=== PATIENT | female | born 1980 | race Caucasian/White ===

== ENCOUNTER 2017-04-22 19:58 | Inpatient (IN) | payer MEDICAID ==
[~2017-04-22] VITALS: Ht 157.5 cm; Wt 62.1 kg
[2017-04-22] MEDS ORDERED: LACTATED RINGER'S 1,000 ML IV SCH (20:32)
[2017-04-22] MEDS ORDERED: MAGNESIUM SULFATE 4 GM/100 ML 100 ML IV ONE (21:00)
[2017-04-22] MEDS ORDERED: TERBUTALINE 1 MG/ML INJ SC ONE (21:00)
[2017-04-22] MEDS ORDERED: ACETAMINOPHEN 325 MG TAB PO PRN (21:00)
[2017-04-22] MEDS ORDERED: BETAMET NA PHOS/AC(6 MG/ML) 5ML INJ IM SCH (21:00)
[2017-04-22] MEDS: LACTATED RINGER'S 1,000 ML IV SCH (21:28)
[2017-04-22 21:53] LABS: ADD SCAN DIFF NO
[2017-04-22] MEDS: MAGNESIUM SULFATE 20 GM/500 ML 500 ML IV SCH (21:55)
[2017-04-22 21:56] LABS: BASOPHILS % 0.3 % (0.0-2.0); EOSINOPHILS # 0.1 10^3/ul (0.0-0.5); EOSINOPHILS % 0.7 % (0.0-7.0); HEMATOCRIT 32.6 % (37.0-47.0); LYMPHOCYTES # 1.9 10^3/ul (0.8-2.9); LYMPHOCYTES % 24.4 % (15.0-51.0); MEAN CORPUSCULAR HEMOGLOBIN 27.2 pg (29.0-33.0); MEAN CORPUSCULAR HGB CONC 33.7 g/dl (32.0-37.0); MEAN CORPUSCULAR VOLUME 80.7 fl (82.0-101.0); MEAN PLATELET VOLUME 11.7 fl (7.4-10.4); MONOCYTE # 0.6 10^3/ul (0.3-0.9); MONOCYTES % 8.1 % (0.0-11.0); NEUTROPHILS % 66.2 % (39.0-77.0); PLATELET COUNT 188 10^3/UL (140-415); RED BLOOD COUNT 4.04 10^6/ul (4.20-5.40); RED CELL DISTRIBUTION WIDTH 14.1 % (11.5-14.5); WHITE BLOOD COUNT 7.6 10^3/ul (4.8-10.8)
[2017-04-22 21:57] VITALS: Ht 157.5 cm; Wt 62.1 kg
[2017-04-22 22:00] LABS: ADD UMIC NO; UR ASCORBIC ACID NEGATIVE (NEGATIVE); UR BILIRUBIN (Dip) NEGATIVE (NEGATIVE); UR BLOOD (Dip) NEGATIVE (NEGATIVE); UR CLARITY CLEAR (CLEAR); UR COLOR STRAW (YELLOW); UR GLUCOSE (Dip) NEGATIVE (NEGATIVE); UR KETONES (Dip) NEGATIVE (NEGATIVE); UR LEUKOCYTE ESTERASE (Dip) NEGATIVE Leu/ul (NEGATIVE); UR NITRITE (Dip) NEGATIVE (NEGATIVE); UR SPECIFIC GRAVITY (Dip) 1.004 (1.003-1.030); UR TOTAL PROTEIN (Dip) NEGATIVE (NEGATIVE); UR UROBILINOGEN (Dip) NEGATIVE (NEGATIVE)
--- NOTE | 2017-04-23 00:06 | RADRPT ---
PROCEDURE: ULTRASOUND OBSTETRICAL CLINICAL INDICATION: 36-year-old female with contractions for viability. TECHNIQUE: Multiple sonographic images of the pelvis were obtained. The images were reviewed on a PACS workstation. COMPARISON: No prior studies are available for comparison. FINDINGS: The cervix is not well visualized. There is a single viable intrauterine gestation. Cardiac activit y is present with 159 beats per minute. There is a breech presentation. Measurements were made in or gutierrez to determine age. The results are as follows: BPD = 8.37 cm, HC = 30.49 cm, AC = 29.79 cm, FL = 6.51 cm. This yields and estimated gestational ag e of approximately 33 weeks 5 days. The estimated date of delivery is June 05, 2017. The EFW = 22 60 +/- 339 g (5 lb 0 oz). The GP is 39%. The placenta is anterior. There is no evidence for an abruption or placenta previa. IMPRESSION: 1. Single viable intrauterine gestation of approximately 33 weeks 5 days with breech presentation. The estimated date of delivery is June 05, 2017. 2. The estimated weight is 2260 +/- 339 g (5 lb 0 oz). The GP is 39%. .Brennon Neil MD, Date Time Electronically viewed and signed by .Brennon Neil MD, MD on 04/23/2017 00:05 .Ryne/
[2017-04-23] MEDS: ONDANSETRON 4 MG INJ IV PRN ×2 (02:59→12:44)
[2017-04-23] MEDS ORDERED: AL HYDROX/MG HYDROX/SIMETH 30 ML CUP PO PRN (03:00)
[2017-04-23] MEDS: LACTATED RINGER'S 1,000 ML IV SCH ×2 (03:01→16:14)
[2017-04-23] MEDS: MAGNESIUM SULFATE 20 GM/500 ML 500 ML IV SCH ×2 (03:11→11:47)
[2017-04-23] MEDS: MULTIVIT/MIN/FOLATE/IRON/PREN TAB PO SCH (08:58)
[2017-04-23] MEDS: FERROUS SULFATE (EC) 325 MG TAB PO SCH (08:59)
--- NOTE | 2017-04-23 20:13 | HP ---
Date/Time of Note Date/Time of Note late entry DATE: 04/22/17 OB - History Hx of Present Free Text/Dictation 36 y/o female admitted C/O uterine contractions started Am of the admission Estimated Due Date: Jun 04, 2017 : 2 Para: 1 Care: Good Care Ultrasounds: Normal mid trimester US Obstetrical Complications: None Medical Complications: None Past Family/Social History * Past Medical, Surgical, Family and Obstetric Histories reviewed from chart. Blood Type: A+ Rubella: immune RPR/VDRL: Negative GBS Status: Unknown HBsAG: Negative OB Admission Exam Physical Exam HEENT: WNL Heart: Rhythm Normal Lungs: Clear, Equal Abdomen: WNL Extremities: Normal Reflexes: Normal Cervical Dilatation: Fingertip Effacement: 25% Station: -3 (breech ) Membranes: Intact Heart Rate: 140's Accelerations: Accelerations Present Decelerations: No Decelerations Varibility: Marked Contractions on Admission: < 5 Minutes Apart Date/Time Contractions Began: 04/22/2017 Frequency of Contractions: q 5 Duration: >60 seconds Intensity: Moderate Last 72 hours Lab Results CBC & BMP 04/22/17 21:08 Magnesium Level Test 04/23/17 06:52 04/23/17 12:34 04/23/17 18:15 Magnesium Level 6.5 *H 6.2 *H 4.9 H OB Assessment/Plan Reason for admission: labor Other Assessment: breech presentation 34 weeks gestation Other plan: tocolysis of labor steroids JONO CANALES MD Apr 23, 2017 20:13
--- NOTE | 2017-04-23 20:16 | PN ---
Date/Time of Note Date/Time of Note DATE: 04/23/17 TIME: 20:13 OB Subjective Subjective Subjective no more C/S UCs OB Objective Objective Objective VSS P/E Normal on WFM UC seen q 12-15 min OB Assessment/Plan Reason for admission: labor Other Assessment: 34 weeks gestation Confusion started by patient who claims she is more than 37 weeks: however by any U/X done EDC is 06/04/2017 Other plan: will change to PO medications next day JONO CANALES MD Apr 23, 2017 20:16
[2017-04-23] MEDS ORDERED: BETAMET NA PHOS/AC(6 MG/ML) 5ML INJ IM SCH (20:30)
[2017-04-24] MEDS: LACTATED RINGER'S 1,000 ML IV SCH ×2 (03:24→14:33)
[2017-04-24] MEDS: MAGNESIUM SULFATE 20 GM/500 ML 500 ML IV SCH (03:26)
[2017-04-24] MEDS: MULTIVIT/MIN/FOLATE/IRON/PREN TAB PO SCH (09:14)
[2017-04-24] MEDS: FERROUS SULFATE (EC) 325 MG TAB PO SCH (09:15)
--- NOTE | 2017-04-24 18:45 | PN ---
Date/Time of Note Date/Time of Note DATE: 04/24/17 TIME: 18:38 OB Subjective Subjective Subjective NO C/So UC OB Objective Objective Objective new information obtained re U/S : Patient had OB U/S on 12/27/2016 in C: 20.6 weeks by this U/S patient is currently 37.5 weeks By U/S on 04/22: baby has severe IUGR Perinatology consult ontained:(Dr Allen): recommended delivery : Will schedule for C OB Assessment/Plan Other Assessment: uterine contractions severe IUGR Other plan: primary C/S next day JONO CANALES MD Apr 24, 2017 18:45
[2017-04-24] MEDS ORDERED: OXYTOCIN 30 UNITS/LR 500 ML IV PRN (21:30)
[2017-04-24] MEDS ORDERED: CEFAZOLIN 2 GM/50 ML (PMX) 50 ML IV SCH (21:30)
[2017-04-24] MEDS ORDERED: OXYTOCIN 30 UNITS/LR 500 ML IV SCH (21:30)
[2017-04-24] MEDS ORDERED: MISOPROSTOL 200 MCG TAB PR PRN (21:30)
[2017-04-24] MEDS ORDERED: METHYLERGONOVINE 0.2 MG INJ IM PRN (21:30)
[2017-04-24] MEDS ORDERED: CARBOPROST 250 MCG INJ IM PRN (21:30)
[2017-04-25] MEDS: LACTATED RINGER'S 1,000 ML IV SCH ×3 (01:15→19:05)
[2017-04-25 06:21] LABS: ADD SCAN DIFF NO
[2017-04-25 06:25] LABS: BASOPHILS % 0.2 % (0.0-2.0); HEMATOCRIT 29.9 % (37.0-47.0); HEMOGLOBIN 9.7 g/dl (12.0-16.0); LYMPHOCYTES # 1.6 10^3/ul (0.8-2.9); LYMPHOCYTES % 16.1 % (15.0-51.0); MEAN CORPUSCULAR HEMOGLOBIN 27.1 pg (29.0-33.0); MEAN CORPUSCULAR HGB CONC 32.4 g/dl (32.0-37.0); MEAN CORPUSCULAR VOLUME 83.5 fl (82.0-101.0); MEAN PLATELET VOLUME 11.5 fl (7.4-10.4); MONOCYTES % 9.5 % (0.0-11.0); NEUTROPHIL # 7.2 10^3/ul (1.6-7.5); NEUTROPHILS % 72.8 % (39.0-77.0); PLATELET COUNT 164 10^3/UL (140-415); RED BLOOD COUNT 3.58 10^6/ul (4.20-5.40); RED CELL DISTRIBUTION WIDTH 14.6 % (11.5-14.5)
[2017-04-25 06:51] LABS: INR 0.96; PROTIME 12.8 Sec (12.2-14.2)
[2017-04-25 06:52] LABS: PARTIAL THROMBOPLASTIN TIME 24.4 Sec (25.0-35.0)
[2017-04-25] MEDS: MULTIVIT/MIN/FOLATE/IRON/PREN TAB PO SCH (09:00)
[2017-04-25] MEDS: FERROUS SULFATE (EC) 325 MG TAB PO SCH (09:00)
[2017-04-25] MEDS ORDERED: morphine SULFATE/PF (10 MG/10 ML) INJ ONE (12:33)
[2017-04-25] MEDS ORDERED: FENTAnyl 50 MCG/ML VIAL ONE (12:33)
[2017-04-25] MEDS ORDERED: CITRIC ACID/SODIUM CITRATE 15 ML CUP ONE ×2 (12:55→12:58)
[2017-04-25] MEDS ORDERED: DEXAMETHASONE 4 MG/ML 1 ML INJ ONE (14:01)
[2017-04-25] MEDS ORDERED: PROPOFOL 20 ML ONE (14:16)
[2017-04-25] MEDS ORDERED: ONDANSETRON 4 MG INJ ONE (14:20)
--- NOTE | 2017-04-25 15:05 | OPR ---
Operative Report Planned Procedure Procedure date Apr 25, 2017 Procedure(s) primary C/S + BTL Performed by: JONO CANALES MD Assisting provider: BEN WHITLEY MD Anesthesiologist: JESUS COOK Pre-procedure diagnosis 37 + weeks breech presentation ? IUGR labor pains desired sterilization Anesthesia Type: spinal Procedure Description Under satisfactory anaesthesia a Pfannenstiel incision was made two fingerbreadth above and parallel to the symphysis of pubis. Incision was extended laterally to the border of the Recti muscles on either sides. Incision was carried down with sharp and blunt dissection until fascia was reached. Anterior Recti muscle fascia was incised in mid portion and incision extended laterally to the border of skin incision. Fascia was mobilized from muscle superiorly and Recti muscles were from midline using sharp and blunt dissection. Peritoneum was visualized; Avoiding bowel and bladder it was incised . Incision was extended superiorly and inferiorly. Bladder blade was placed. Posterior peritoneum covering the lower segment of the uterus and lower segment of the uterus were incised.Low transverse uterine incision was made on lower segment of the uterus. Incision extended laterally to the border of Round Lig. on either sides and baby was delivered from OT. position . Amniotic fluid appeared clear. Cord blood was obtained and cord had 3 vessels . Placenta was delivered spontaneously and appeared intact and complete. Intrauterine cavity was rubbed with a laparotomy sponge. Uterine incision was closed in 2 layers using running stitches of No1 Monocryl. Hemostasis appeared secure. Ovaries and Fallopian tubes were within normal limits. Bilateral Tubal Ligation was performed by following procedure: R fallopian tube was raised in mid portion; a Sherrill clamp was placed below the fimbriae extending to proximal portion of the fallopian tube. Another clamp was placed parallel to the first and after incising the fallopian tube the stump was sutured using 0 Vicryl stitch. Hemostasis was secure . Same procedure was done on fallopian tube on the opposite side. Hemostasis appeared to be secure on ligated sites of either fallopian tubes. Announcing needle, lap sponge and instrument count to be correct abdomen was closed in layers as follows: Peritoneum and Recti muscles with running stitches of 20 Vicryl. Fascia with running stitch of No 1 PDS. Subcutaneous tissue with running stitches of 20 Chromic and skin was closed using brayan. Patient tolerated the procedure well and was transferred to [facility] in good condition. Post-Procedure Post-procedure diagnosis S/P C/S + BTL Findings: Live Baby Specimen removed: Yes Specimen description segments of R and L fallopian tubes Complications: None Pt Condition post procedure: stable Disposition: PACU Physician Certification I, the undersigned physician, hereby certify that I have discussed the procedure described in this consent form with this patient (or the patient's legal pharmacy sales representative), including: * The risk and benefits of the procedure; * Any adverse reactions that may reasonably be expected to occur; * Any alternative efficacious methods of treatment which may be medically viable ; * The potential problems that may occur during recuperation; * Potential for blood transfusion and associated risks/benefits; and * Any research or economic interest I may have regarding this treatment. I further certify that the patient/legally responsible person was encouraged to ask question and that all questions were answered. JONO CANALES MD Apr 25, 2017 15:05
[2017-04-25] MEDS ORDERED: HYDROmorphONE 1 MG/ML SYG IV PRN ×2 (15:30)
[2017-04-25] MEDS ORDERED: DIPHENHYDRAMINE 50 MG INJ IV PRN (15:30)
[2017-04-25] MEDS ORDERED: ZOLPIDEM 5 MG TAB PO PRN (15:30)
[2017-04-25] MEDS ORDERED: ONDANSETRON 4 MG INJ IV PRN (15:30)
[2017-04-25] MEDS ORDERED: NALOXONE (0.4 MG/ML) INJ IV PRN (15:30)
[2017-04-25] MEDS ORDERED: KETOROLAC 30 MG INJ IV PRN (15:30)
[2017-04-25 18:25] VITALS: BP 133/74; PULSE 51; RESP 16
[2017-04-25] MEDS ORDERED: ACETAMINOPHEN/CODEINE #3 TAB PO PRN (18:30)
[2017-04-25] MEDS ORDERED: MISOPROSTOL 200 MCG TAB PR PRN (18:30)
[2017-04-25] MEDS ORDERED: METHYLERGONOVINE 0.2 MG INJ IM PRN (18:30)
[2017-04-25] MEDS ORDERED: CARBOPROST 250 MCG INJ IM PRN (18:30)
[2017-04-25] MEDS ORDERED: OXYTOCIN 30 UNITS/LR 500 ML IV PRN (18:30)
[2017-04-25 19:30] VITALS: BP 127/61; PULSE 55; RESP 18
[2017-04-25 20:20] VITALS: BP 119/70; PULSE 53; RESP 18
[2017-04-26 00:05] VITALS: BP 116/59; PULSE 56; RESP 18
[2017-04-26] MEDS: LACTATED RINGER'S 1,000 ML IV SCH ×3 (03:07→18:30)
[2017-04-26 04:06] VITALS: BP 99/51; PULSE 58; RESP 18
[2017-04-26] MEDS: CLINDAMYCIN 300 MG CAP PO SCH ×3 (06:03→18:50)
[2017-04-26 08:11] LABS: BASOPHILS % 0.1 % (0.0-2.0); HEMATOCRIT 27.7 % (37.0-47.0); HEMOGLOBIN 9.2 g/dl (12.0-16.0); LYMPHOCYTES % 15.6 % (15.0-51.0); MEAN CORPUSCULAR HEMOGLOBIN 27.2 pg (29.0-33.0); MEAN CORPUSCULAR HGB CONC 33.2 g/dl (32.0-37.0); MEAN PLATELET VOLUME 11.8 fl (7.4-10.4); MONOCYTE # 1.1 10^3/ul (0.3-0.9); NEUTROPHIL # 9.4 10^3/ul (1.6-7.5); NEUTROPHILS % 74.8 % (39.0-77.0); PLATELET COUNT 152 10^3/UL (140-415); RED BLOOD COUNT 3.38 10^6/ul (4.20-5.40); RED CELL DISTRIBUTION WIDTH 14.5 % (11.5-14.5); WHITE BLOOD COUNT 12.6 10^3/ul (4.8-10.8)
[2017-04-26 08:16] LABS: ADD SCAN DIFF NO
[2017-04-26 08:30] VITALS: BP 101/56; PULSE 55; RESP 16
[2017-04-26] MEDS ORDERED: BISACODYL 10 MG SUPP PR ONE (11:00)
[2017-04-26 12:15] VITALS: BP 105/70; PULSE 65; RESP 20
[2017-04-26] MEDS: OXYCODONE/ACETAMINOPHEN (5/325) TAB PO PRN (15:49)
[2017-04-26 15:53] VITALS: BP 135/69; PULSE 59; RESP 16
--- NOTE | 2017-04-26 16:58 | PN ---
Date/Time of Note Date/Time of Note DATE: 04/26/17 TIME: 16:56 Assessment/Plan VTE Prophylaxis VTE Prophylaxis Intervention: ambulation Lines/Catheters IV Catheter Type (from Nrsg): Peripheral IV Assessment/Plan Assessment/Plan POD #1 status post and tubal ligation We will advance diet and ambulate Subjective 24 Hr Interval Summary No bowel movements passing flatus Constitutional: BM, ambulates, flatus, improved, no complaints, urine output Pain Control: well controlled Exam/Review of Systems Vital Signs Vitals Vital Signs Date Time Temp Pulse Resp B/P Pulse Ox O2 Delivery O2 Flow Rate FiO2 04/26/17 15:53 98.7 59 16 135/69 Room Air Intake and Output 04/25/17 04/25/17 04/26/17 15:00 23:00 07:00 Intake Total 1200 ml 500 ml 1375 ml Output Total 1100 ml 3444 ml 850 ml Balance 100 ml -2944 ml 525 ml Exam Free Text/Dictation Abdomen soft bowel sounds positive Incision is covered Constitutional: alert, oriented, well developed Psych: nl mood/affect, no complaints Head: atraumatic, normocephalic Eyes: EOMI, nl conjunctiva, nl lids, nl sclera ENMT: mucosa pink and moist, nl external ears & nose, nl lips & teeth, nl nasal mucosa & septum Neck: non-tender, supple Respiratory: clear to auscultation, normal air movement Cardiovascular: nl pulses, regular rate and rhythm Gastrointestinal: nl liver, spleen, non-tender, soft Drains None Musculoskeletal: nl extremities to inspection, nl gait and stance Extremities: normal pulses 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
[2017-04-26 20:00] VITALS: BP 101/59; PULSE 64; RESP 18
[2017-04-27] MEDS: CLINDAMYCIN 300 MG CAP PO SCH ×4 (00:04→18:40)
[2017-04-27] MEDS: LACTATED RINGER'S 1,000 ML IV SCH ×3 (02:30→18:30)
[2017-04-27 04:20] VITALS: BP 95/55; PULSE 77; RESP 18
[2017-04-27 08:15] VITALS: BP 88/53; PULSE 68; RESP 17
[2017-04-27] MEDS: OXYCODONE/ACETAMINOPHEN (5/325) TAB PO PRN (16:32)
[2017-04-27 16:49] VITALS: BP 95/59; PULSE 93; RESP 18
--- NOTE | 2017-04-27 19:40 | PN ---
Date/Time of Note Date/Time of Note DATE: 04/27/17 TIME: 19:37 Assessment/Plan VTE Prophylaxis VTE Prophylaxis Intervention: ambulation Lines/Catheters IV Catheter Type (from Nrsg): Peripheral IV Assessment/Plan Assessment/Plan POD # 1 S/P C/S will advance diet and ambulate Subjective 24 Hr Interval Summary HAD BM Constitutional: BM, ambulates, flatus, improved, no complaints, urine output Pain Control: well controlled Exam/Review of Systems Vital Signs Vitals Vital Signs Date Time Temp Pulse Resp B/P Pulse Ox O2 Delivery O2 Flow Rate FiO2 04/27/17 16:49 97.5 93 18 95/59 Room Air Intake and Output 04/26/17 04/26/17 04/27/17 15:00 23:00 07:00 Intake Total 1125 ml 1000 ml Output Total 1200 ml 2350 ml Balance -75 ml -1350 ml Exam Free Text/Dictation abdomen: aof t , BS + incision healing well Constitutional: alert, oriented, well developed Psych: nl mood/affect, no complaints Head: atraumatic, normocephalic Eyes: EOMI, nl conjunctiva, nl lids, nl sclera ENMT: mucosa pink and moist, nl external ears & nose, nl lips & teeth, nl nasal mucosa & septum Neck: non-tender, supple Respiratory: clear to auscultation, normal air movement Cardiovascular: nl pulses, regular rate and rhythm Gastrointestinal: nl liver, spleen, non-tender, soft Musculoskeletal: nl extremities to inspection, nl gait and stance Extremities: normal pulses 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
[2017-04-27 19:50] VITALS: BP 95/57; PULSE 67; RESP 18
[2017-04-28] MEDS: CLINDAMYCIN 300 MG CAP PO SCH ×4 (00:38→18:31)
[2017-04-28] MEDS: LACTATED RINGER'S 1,000 ML IV SCH ×2 (02:30→07:46)
[2017-04-28 04:20] VITALS: BP 101/64; PULSE 67; RESP 18
[2017-04-28 08:15] VITALS: BP 104/58; PULSE 92; RESP 18
--- NOTE | 2017-04-28 11:34 | OPPN ---
Date/Time of Note Date/Time of Note DATE: 04/28/17 TIME: 11:34 Anesthesia Follow up Anesthesia Follow up Last documented vital signs Vital Signs Date Time Temp Pulse Resp B/P Pulse Ox O2 Delivery O2 Flow Rate FiO2 04/28/17 04:20 98.3 67 18 101/64 Room Air Respiratory function: WNL Cardiovascular function: WNL Comments satisfactory recovery from anesthesia JESUS COOK Apr 28, 2017 11:34
[2017-04-28] MEDS: OXYCODONE/ACETAMINOPHEN (5/325) TAB PO PRN (12:18)
[2017-04-28 16:22] VITALS: BP 113/76; PULSE 72; RESP 16
--- NOTE | 2017-04-28 17:55 | DS ---
Date/Time of Note Date/Time of Note DATE: 04/28/17 TIME: 17:53 Obstetrical Discharge Record Final Diagnosis Final Diagnosis: Term delivered Other Final Diagnosis S/P C/S + BTL Vaginal Delivery Obstetrical Delivery: Bilateral Tubal Ligation Section Section: Primary Primary Indication breech Condition on Discharge Physical Assessment Last Vitals: see nurses notes n Voiding: Yes Bowel Movement: Yes Breast: Soft, non-tender, Filling Fundus: Firm Abdomen and Incision: soft bs + incision healing well Episiotomy: NA Calf Tenderness: No Patient Condition: Good JONO CANALES MD Apr 28, 2017 17:54
--- NOTE | 2017-04-28 17:57 | DS ---
Date/Time of Note Date/Time of Note DATE: 04/28/17 TIME: 17:55 Discharge Summary Admission/Discharge Info Admit Date/Time Apr 22, 2017 at 20:55 Discharge Date/Time 04/28/2017 Discharge Diagnosis S/P C/S + BTL Patient Condition: Good Procedures C/S + BTL Hx of Present Illness 36 y/o female finally underwent primary C/S + BTL Hospital Course uncomplicated Follow-up Plan 3-4 days in clinic for staple removal Primary Care Provider Not On Staff Doctor Time spent on discharge: < 30 minutes JONO CANALES MD Apr 28, 2017 17:56
--- NOTE | 2017-04-28 17:58 | PD.PPDC ---
PT SITTER Discharge Instruction Provider Information Physician Information 36 y/o female had priary C/S + BTL Diagnosis Final Diagnosis: S/P C/S + BTL Condition Patient Condition: Good Diet Diet: Resume Regular Diet Activity/Restrictions Activity: February Shower Restrictions: No Exercising No Lifting Nothing in the Vagina Return to Work or School: Jul 01, 2017 Wound/Drain Care Instructions Wound/Drain Care Instructions: Keep clean and dry Follow-up Follow-up with Physician: 4, Day/Days (in clinic for staple removal ) Return to clinic for MARKETING [employer] OP Instructions: Fever greater than 101 Chills OB Instructions: Breast Tenderness Depression Surgical Instructions: Incisional Drainage Incisional Redness JONO CANALES MD Apr 28, 2017 17:58
[2017-04-28] MEDS ORDERED: IBUP800T25 PO (18:02)
[2017-04-28] MEDS ORDERED: Oxycodone/Acetamin (5/325) PO (18:02)
[2017-04-28] MEDS ORDERED: IBUPROFEN 800 MG TAB PO SCH (22:00)
== END 2017-04-28 19:45 | disposition home or self-care (01) | DRG 766 ==
LOC: OBT 19:58 → L-D 19:59 → OBG 20:55 → OBT 20:55 → L-D 04-25 10:26 → PP1 04-25 18:21
PROVIDERS: ADMIT Obstetrics & Gynecology; ATTEND Obstetrics & Gynecology
PROC: 0UL70ZZ Occlusion of Bilateral Fallopian Tubes, Open Approach (ICD-10-PCS; 2017-04-25)
PROC: 10D00Z1 Extraction of Products of Conception, Low, Open Approach (ICD-10-PCS; principal; 2017-04-25 12:30)
DX: O32.1XX0 Maternal care for breech presentation, not applicable or unspecified (principal); Z30.2 Encounter for sterilization; Z3A.37 37 weeks gestation of pregnancy; Z37.0 Single live birth
CPT/HCPCS: 36415; 76815; 81003; 83735; 85025; 85610; 85730; 86592; 86850; 86900; 86901; 87340; 88302; 96360; 96368; 96372; 99464; J0690; J0702; J1100; J1885; J2274; J2405; J2590; J3010; J3105; J3475; J7120